=== PATIENT | male | born 1985 | race Caucasian/White ===

== ENCOUNTER 2017-10-01 07:24 | Emergency (ER) | payer OTHER ==
[~2017-10-01] VITALS: Ht 190.5 cm; Wt 102.3 kg
[2017-10-01 07:30] VITALS: BP 134/89; TEMP 97.7
[2017-10-01] MEDS ORDERED: PROAIR HFA0.09 MG/AC IH (07:55)
[2017-10-01] MEDS ORDERED: 00186-0372-20 IH (07:56)
[2017-10-01 08:16] LABS: COLLECTION METHOD CLEAN CATCH
[2017-10-01 08:22] LABS: BASO # 0.1 (0.0-0.2); EOS # 0.3 (0.0-0.7); EOS % 4.4 % (0-4.0); GRAN # 2.8 (1.4-6.5); GRAN % 47.9 % (42.2-75.2); HEMATOCRIT 43.9 % (42.0-52.0); HEMOGLOBIN 15.3 g/dl (13.5-18.0); LYMPH # 2.2 (1.2-3.4); LYMPH % 37.6 % (20.0-51.0); MEAN CELL VOLUME 88 fl (80.0-100.0); MEAN CORPUSCULAR HEMOGLOBIN 31 pg (27.0-31.0); MEAN CORPUSCULAR HGB CONC 35 g/dl (33.0-37.0); MONO # 0.5 (0.1-0.6); MONO % 8.9 % (1.7-9.3); PLATELET COUNT 235 K/mm3 (130-400); RED BLOOD COUNT 5.02 M/mm3 (4.20-5.60); REDCELL DISTRIBUTION WIDTH-CV 12.1 % (11.5-14.5)
[2017-10-01 08:28] LABS: MUCOUS Present /lpf; PH 5 (5-8); SQUAMOUS EPITHELIAL None Seen /hpf; URINE APPEARANCE Clear; URINE BACTERIA None Seen /hpf; URINE BILIRUBIN Negative (NEGATIVE); URINE BLOOD Negative (NEGATIVE); URINE COLOR Yellow; URINE GLUCOSE Negative (NEGATIVE); URINE KETONE Negative (NEGATIVE); URINE LEUKOCYTE ESTERASE Negative (NEGATIVE); URINE NITRATE Negative (NEGATIVE); URINE PROTEIN(semi-quant) Negative (NEGATIVE); URINE RBC 0-2 /hpf; URINE UROBILINOGEN Negative (NEGATIVE)
[2017-10-01 08:36] LABS: ALANINE AMINOTRANSFERASE 27 U/L (21-72); ALBUMIN 4.4 gm/dL (3.5-5.0); ALKALINE PHOSPHATASE 69 U/L (50-136); ANION GAP 13 mmol/L (7-16); AST,SGOT 26 U/L (15-37); BILIRUBIN,TOTAL 0.5 mg/dL (0.0-1.0); BLOOD UREA NITROGEN 16 mg/dL (9-20); CALCIUM 9.8 mg/dL (8.4-10.2); CARBON DIOXIDE 25 mmol/L (22-30); CHLORIDE 102 mmol/L (98-107); CREATININE, serum 1.48 mg/dL (0.66-1.25); GLUCOSE 88 mg/dL (74-106); POTASSIUM 4.2 mmol/L (3.4-5.0); SODIUM 140 mmol/L (137-145); TOTAL PROTEIN 7.9 gm/dL (6.4-8.2)
[2017-10-01 08:38] LABS: C-REACTIVE PROTEIN < 0.5 mg/dL (0.0-0.9)
[2017-10-01] MEDS ORDERED: NORCO 325 MG-51 TAB PO (09:10)
[2017-10-01 10:01] VITALS: PULSE 76
== END 2017-10-01 10:01 | disposition home or self-care (01) ==
LOC: COL.ER 07:24
PROVIDERS: Physician Assistant
DX: N18.9 Chronic kidney disease, unspecified (principal)
CPT/HCPCS: J7030

== ENCOUNTER → 2018-10-06 | Outpatient (CLI) | payer OTHER ==
[~2018-10-06] MED LIST: 00186-0372-20 IH; NORCO 325 MG-51 TAB PO; PROAIR HFA0.09 MG/AC IH
== END ==
LOC: COL.RAD 12:19
DX: N26.1 Atrophy of kidney (terminal) (principal); N28.89 Other specified disorders of kidney and ureter
CPT/HCPCS: A9585